=== PATIENT | male | born 1995 | race Caucasian/White ===

== ENCOUNTER 2018-07-10 08:52 | Day surgery (SDC) | payer OTHER ==
[2018-07-10] MEDS ORDERED: CEFAZOLIN 2 GM/D5W RTU 2 GM/50 ML RTUPB IV ONE (09:43)
[2018-07-10] MEDS ORDERED: FENTANYL CITRATE INJ/PF 250 MCG/5 ML AMPULE ONE (11:28)
[2018-07-10] MEDS ORDERED: MIDAZOLAM 2 MG/2 ML INJ ONE (11:28)
[2018-07-10] MEDS ORDERED: PROPOFOL INJ 200 MG/20 ML VIAL IV ONE (11:29)
[2018-07-10] MEDS ORDERED: OXYCODONE-ACETAMINOPHEN 5-325 MG TABLET PO PRN ×3 (12:19→15:12)
[2018-07-10] MEDS ORDERED: DIPHENHYDRAMINE HCL 50 MG/ML VIAL IV PRN (12:19)
[2018-07-10] MEDS ORDERED: FENTANYL CITRATE INJ/PF 100 MCG/2 ML AMPUL IV PRN ×3 (12:19)
[2018-07-10] MEDS ORDERED: MEPERIDINE HCL/PF INJ 25 MG/1 ML DISP.SYRIN IV PRN (12:19)
[2018-07-10] MEDS ORDERED: PROMETHAZINE HCL INJ 25 MG/1 ML VIAL IV PRN ×2 (12:19)
[2018-07-10] MEDS ORDERED: BUPIVACAINE HCL 0.5 % INJ/PF 30 ML SDV ONE (12:55)
[2018-07-10] MEDS ORDERED: ONDANSETRON HCL INJ/PF 4 MG/2 ML SDV ONE (13:43)
[2018-07-10] MEDS ORDERED: DEXAMETHASONE SOD PHOSPHATE INJ 4 MG/1 ML VIAL ONE (13:43)
[2018-07-10] MEDS ORDERED: SUCCINYLCHOLINE CHLORIDE INJ 200 MG/10 ML VIAL ONE (13:43)
[2018-07-10] MEDS: FENTANYL CITRATE INJ/PF 100 MCG/2 ML AMPUL ONE ×2 (14:55→15:12)
[2018-07-10] MEDS ORDERED: ONDANSETRON HCL INJ/PF 4 MG/2 ML SDV IV PRN (15:12)
[2018-07-10] MEDS ORDERED: KETOROLAC TROMETHAMINE INJ/PF 30 MG/1 ML SDV ONE (15:36)
--- NOTE | 2018-07-10 15:47 | RADIOLOGY REPORT (SQ) ---
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 FLUOROSCOPY TIME: 9 seconds 3 C-arm images saved to PACS. TECHNIQUE: Intra-operative images acquired during surgical procedure to evaluate progress. NUMBER OF IMAGES: 3 digital C-arm images LIMITATIONS: None. FINDINGS: Intra procedural imaging and fluoro during resection of the scaphoid bone and fusion at th e lunatocapitate and lunatohamate joints. Please see the operative report for further details IMPRESSION: Intra procedural imaging and fluoro COMMENT: Quality ID [id number]: Final reports for procedures using fluoroscopy that document radiation exp osure indices, or exposure time and number of fluorographic images (if radiation exposure indices are not available) Please consult full operative report of the attending physician for description of the procedure. TECHNICAL DOCUMENTATION: JOB ID: [id number] [employer]- All Rights Reserved Reading location - IP/workstation name: [facility]
--- NOTE | 2018-07-10 15:48 | RADIOLOGY REPORT (SQ) ---
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 FLUOROSCOPY TIME: 9 seconds 3 C-arm images saved to PACS. TECHNIQUE: Intra-operative images acquired during surgical procedure to evaluate progress. NUMBER OF IMAGES: 3 digital C-arm images LIMITATIONS: None. FINDINGS: Intra procedural imaging and fluoro during resection of the scaphoid bone and fusion at th e lunatocapitate and lunatohamate joints. Please see the operative report for further details IMPRESSION: Intra procedural imaging and fluoro COMMENT: Quality ID [id number]: Final reports for procedures using fluoroscopy that document radiation exp osure indices, or exposure time and number of fluorographic images (if radiation exposure indices are not available) Please consult full operative report of the attending physician for description of the procedure. TECHNICAL DOCUMENTATION: JOB ID: [id number] [employer]- All Rights Reserved Reading location - IP/workstation name: [facility]
[2018-07-10] MEDS ORDERED: OXYCODONE-ACETAMINOPHEN 5-325 MG TABLET ONE (15:52)
[2018-07-10 17:37] VITALS: BP 134/73
--- NOTE | 2018-07-10 18:26 | OPERATIVE REPORT E ---
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 OPERATION: 1. Scaphoid excision with intercarpal fusion, autogenous bone graft. 2. Posterior intraosseous nerve neurectomy. SURGEON: HINA UGARTE M.D. ANESTHESIA: General. ESTIMATED BLOOD LOSS: Minimal. COMPLICATIONS: None. INDICATIONS: The patient is a 23-year-old male with arthritis in his left wrist following a failed scaphoid operation. He has failed nonoperative treatment. PROCEDURE: Following induction of a general anesthetic and administration of antibiotics, the patient was positioned supine on the operating room table. All bony prominences were padded. A tourniquet was placed proximally on the left arm, but not inflated. The left upper extremity was sterilely prepped with ChloraPrep and draped in usual fashion. The arm was exsanguinated. The tourniquet was inflated to 250 mmHg. A dorsal longitudinal incision was performed and sharp incision was made through skin with blunt dissection through the subcutaneous tissue. Care was taken to identify and protect the superficial branching *------* The third dorsal extensor compartment was opened and the extensor pollicis longus tendon retracted radially. The fourth dorsal extensor compartment was opened with tendons retracted ulnarly. At this point, excision of 2 cm of the posterior intraoperative nerve was performed for later pain relief, a longitudinal dorsal capsulotomy was performed. Scaphoid was identified and was removed piecemeal. Complete decortication of the distal aspect of the lunate, proximal aspect of the capitate, and the hamate were articulated with the lunate, performed down to good clean bleeding bone using a combination of curettes and rongeurs. No mechanical debridement was performed to prevent thermal necrosis. Bone graft was harvested through a separate window into the distal radius. Bone graft was packed into the fusion site. The bones were properly realigned and Tika wires were used to hold them into position. BME sami were used for osteotomy fixation. Two sami were used; one from the lunate to capitate, one from the lunate to hamate. Intraoperative image intensification was used which demonstrated correct placement of the implants and excellent alignment of the carpal bone. Additional bone graft was impacted on the dorsal surface. The dorsal wrist capsule was closed [id number] with 2-0 Vicryl suture. The extensor retinaculum was repaired [id number] with 2-0 Vicryl with the extensor pollicis longus tendon left outside the sheath. Subcutaneous tissue was closed with 2-0 Vicryl. The dorsal skin was closed with subcuticular 3-0 Monocryl sutures. Steri-Strips were applied. Three separate injections of 0.25% Marcaine were performed, each in the distribution of the 3 peripheral nerves: Median, ulnar, radial for postoperative analgesia. The bulky sterile dressing and volar splint were applied. The patient tolerated the procedure well without complications, and was brought to the recovery room in stable condition. DICTATING PHYSICIAN: HINA UGARTE M.D. [id number] PHY#: [id number] ID: [id number] JOB#: [id number] ACCT: [id number] cc:HINA UGARTE M.D. >
== END 2018-07-10 17:35 | disposition home or self-care (01) ==
LOC: OROUT 08:52
PROVIDERS: ATTEND Orthopaedic Surgery
DX: M12.532 Traumatic arthropathy, left wrist (principal)
CPT/HCPCS: 64772; 73110; 25825; J2250; J3490; J1100; J3010 ×2; J1885; J0330; J2405; J2704; J0690; 01810